=== PATIENT | female | born 1970 | race African-American/Black ===

== ENCOUNTER 2016-04-12 09:55 | Inpatient (IN) | payer OTHER, MEDICAID ==
[~2016-04-12] VITALS: Ht 160 cm; Wt 120.0 kg
[~2016-04-12 09:55] MED LIST: LISI-357 PO; METO25 PO
[2016-04-12 09:57] VITALS: BP 175/117; PULSE 103; RESP 20; TEMP 97.9; O2SAT 96
[2016-04-12 10:08] VITALS: BP 163/105; PULSE 91; RESP 18; O2SAT 99
[2016-04-12] MEDS ORDERED: ONDANSETRON HCL 4 MG/2 ML VIAL IV PUSH ONE (10:15)
[2016-04-12] MEDS: NITROGLYCERIN 0.4 MG SL 25 TABS/BTL SL SCH ×3 (10:15→10:29)
[2016-04-12] MEDS ORDERED: SODIUM CHLORIDE 0.9% FLUSH 5 ML FLUSH IVF PRN (10:15)
[2016-04-12] MEDS ORDERED: ASPIRIN 81 MG CHEW TAB PO ONE (10:15)
[2016-04-12] MEDS ORDERED: METOPROLOL TARTRATE 5 MG/5 ML VIAL IVS SCH (10:15)
[2016-04-12 10:16] VITALS: BP 161/85
--- NOTE | 2016-04-12 10:19 | PD ---
HPI Chief Complaint: Chest Pain Time Seen by Provider: 10:04 Travel History International Travel<30 days: No Contact w/Intl Traveler<30days: No Traveled to known affect area: No History of Present Illness HPI This is a 45-year-old female with history of hypertension, who presents today with complaints of chest pain 2-3 hours. Patient reports it as left sided and achy. She reports it as a 10 out of 10 on the pain scale. She denies any radiation. She does report associated nausea. There is no diaphoresis. When asked if she's had pain like this before, patient states that she did a couple years ago. The patient denies any history of diabetes. She denies any history of hyperlipidemia. She does state that she has a family history of lupus and her mother from lupus related heart disease. There are no other complaints at the time of my examination. PFSH Past Medical History Cancer: No Cardiovascular Problems: Yes (HTN) Endocrine: No Genitourinary: No Headaches: Yes Hypertension: Yes (DURING ) Immune Disorder: No Musculoskeletal: Yes Neurologic: Yes Reproductive: No Respiratory: No Tetanus Vaccination: > 5 Years Influenza Vaccination: Yes ?: Not LMP: 04/08/2016 Ectopic : Yes (X1) Tubal Ligation: Yes Past Surgical History Abdominal Surgery: Yes (APPENDECTOMY) Appendectomy: Yes Section: Yes (3) Gynecologic Surgery: Yes (C SECTION X 4.) Other Surgery: Yes Social History Alcohol Use: No Tobacco Use: No Substance Use: No Allergies-Medications (Allergen,Severity, Reaction): Coded Allergies: Tomato (Verified Allergy, Intermediate, rash, 11/19/13) Reported Meds & Prescriptions Reported Meds & Active Scripts Active Lisinopril 10 Mg Tab 10 Mg PO DAILY Review of Systems Except as stated in HPI: all other systems reviewed are Neg General / Constitutional: No: Fever, Chills HENT: No: Headaches, Lightheadedness Cardiovascular: Positive: Chest Pain or Discomfort, No: Palpitations Respiratory: No: Cough, Shortness of Breath Gastrointestinal: Positive: Nausea, No: Vomiting, Abdominal Pain Genitourinary: No: Frequency, Dysuria Musculoskeletal: No: Weakness, Edema Neurologic: No: Weakness, Dizziness, Syncope, Headache Physical Exam Narrative GENERAL: Well-developed well-nourished female who appears tearful complaining of left sided chest pain. SKIN: Warm and dry. HEAD: Atraumatic. Normocephalic. EYES: No scleral icterus. No injection or drainage. ENT: Mucous membranes pink and moist. NECK: Trachea midline. No JVD. CARDIOVASCULAR: Regular rate and rhythm. No murmur appreciated. RESPIRATORY: No accessory muscle use. Clear to auscultation. Breath sounds equal bilaterally. GASTROINTESTINAL: Abdomen soft, non-tender, nondistended. MUSCULOSKELETAL: No obvious deformities. No clubbing. No cyanosis. No edema. NEUROLOGICAL: Awake and alert. No obvious cranial nerve deficits. Motor grossly within normal limits. Normal speech. PSYCHIATRIC: Appropriate mood and affect. Data Data Last Documented VS Vital Signs Date Time Temp Pulse Resp B/P Pulse Ox O2 Delivery O2 Flow Rate FiO2 04/12/16 11:56 79 18 132/76 98 Room Air 04/12/16 10:29 2 04/12/16 09:57 97.9 Orders Electrocardiogram (04/12/16 10:04) Ckmb (Isoenzyme) Profile (04/12/16 10:04) Complete Blood Count With Diff (04/12/16 10:04) Comprehensive Metabolic Panel (04/12/16 10:04) Magnesium (Mg) (04/12/16 10:04) Prothrombin Time / Inr (Pt) (04/12/16 10:04) Act Partial Throm Time (Ptt) (04/12/16 10:04) Troponin I (04/12/16 10:04) Chest, Single Ap (04/12/16 10:04) Ecg Monitoring (04/12/16 10:04) Bilateral Bp Monitoring (04/12/16 10:04) Iv Access Insert/Monitor (04/12/16 10:04) Oximetry (04/12/16 10:04) Oxygen Administration (04/12/16 10:04) Aspirin Chew (Aspirin Chew) (04/12/16 10:15) Sodium Chloride 0.9% Flush (Ns Flush) (04/12/16 10:15) Nitroglycerin Sl (Nitrostat Sl) (04/12/16 10:15) Ed Urine Pregnancytest Poc (04/12/16 10:04) Ondansetron Inj (Zofran Inj) (04/12/16 10:15) Lisinopril (Prinivil) (04/13/16 09:00) Morphine Inj (Morphine Inj) (04/12/16 12:00) Admit Order (Ed Use Only) (04/12/16 11:54) Labs Laboratory Tests Test 04/12/16 10:10 White Blood Count 14.9 TH/MM3 Red Blood Count 5.22 MIL/MM3 Hemoglobin 12.5 GM/DL Hematocrit 38.7 % Mean Corpuscular Volume 74.2 FL Mean Corpuscular Hemoglobin 23.9 PG Mean Corpuscular Hemoglobin 32.2 % Concent Red Cell Distribution Width 17.5 % Platelet Count 315 TH/MM3 Mean Platelet Volume 8.5 FL Neutrophils (%) (Auto) 72.2 % Lymphocytes (%) (Auto) 21.7 % Monocytes (%) (Auto) 5.5 % Eosinophils (%) (Auto) 0.3 % Basophils (%) (Auto) 0.3 % Neutrophils # (Auto) 10.8 TH/MM3 Lymphocytes # (Auto) 3.2 TH/MM3 Monocytes # (Auto) 0.8 TH/MM3 Eosinophils # (Auto) 0.0 TH/MM3 Basophils # (Auto) 0.0 TH/MM3 CBC Comment AUTO DIFF Differential Comment AUTO DIFF CONFIRMED Prothrombin Time 10.2 SEC Prothromb Time International 0.9 RATIO Ratio Activated Partial 25.1 SEC Thromboplast Time Sodium Level 137 MEQ/L Potassium Level 3.8 MEQ/L Chloride Level 103 MEQ/L Carbon Dioxide Level 25.7 MEQ/L Anion Gap 8 MEQ/L Blood Urea Nitrogen 13 MG/DL Creatinine 0.71 MG/DL Estimat Glomerular Filtration 109 ML/MIN Rate Random Glucose 104 MG/DL Calcium Level 8.2 MG/DL Magnesium Level 2.1 MG/DL Total Bilirubin 0.3 MG/DL Aspartate Amino Transf 14 U/L (AST/SGOT) Alanine Aminotransferase 31 U/L (ALT/SGPT) Alkaline Phosphatase 79 U/L Total Creatine Kinase 93 U/L Troponin I 0.06 NG/ML Total Protein 7.4 GM/DL Albumin 3.7 GM/DL [facility] Medical Decision Making Medical Screen Exam Complete: Yes Emergency Medical Condition: Yes Differential Diagnosis ACS versus muscle skeletal versus pneumonia versus pulmonary embolus Narrative Course This is a 45-year-old female with history of hypertension, who presents today with complaint of 2-3 hours of chest pain. The patient reports the pain as severe pressure like 10 out of 10. The patient had previous episodes of elevated cardiac enzymes in 2013. At that time she had an abnormal stress test. She's not had a cardiac catheterization that I could see and she denies any previously. The patient's troponin is slightly elevated at 0.06. The patient has nonspecific EKG ranges in the inferior leads. She was given nitroglycerin and is pain free after her second dose. She is complaining of nausea and has been given Zofran. I discussed the case with Dr. Pandya, attending and Dr. Steffen Chavez, senior resident who agreed she should be worked up and possibly have a cardiac catheterization. Diagnosis Primary Impression: Chest pain Additional Impressions: Troponin level elevated History of hypertension Scripts Lisinopril 10 Mg Tab10 Mg PO DAILY #30 TAB Ref 0 Prov:Imelda Polo MD R2 04/12/16 Luc Stokes MD Apr 12, 2016 10:19
[2016-04-12 10:27] LABS: AUTOMATED NEUTROPHIL # 10.8 TH/MM3 (1.8-7.7); BASOPHIL % 0.3 % (0.0-2.0); EOSINOPHIL % 0.3 % (0.0-4.0); HEMATOCRIT 38.7 % (35.0-46.0); LYMPH % 21.7 % (9.0-44.0); LYMPHOCYTE # 3.2 TH/MM3 (1.0-4.8); MEAN CELL VOLUME 74.2 FL (80.0-100.0); MEAN CORPUSCULAR HEMOGLOBIN 23.9 PG (27.0-34.0); MEAN CORPUSCULAR HGB CONC 32.2 % (32.0-36.0); MONO % 5.5 % (0.0-8.0); NEUT % 72.2 % (16.0-70.0); PLATELET COUNT 315 TH/MM3 (150-450); RED BLOOD COUNT 5.22 MIL/MM3 (4.00-5.30); RED CELL DISTRIBUTION WIDTH 17.5 % (11.6-17.2); WHITE BLOOD COUNT 14.9 TH/MM3 (4.0-11.0)
[2016-04-12 10:28] LABS: HEMO FLAGS AUTO DIFF
[2016-04-12 10:29] VITALS: BP 151/92; PULSE 101; RESP 20; O2SAT 99
[2016-04-12 10:36] LABS: APTT (PATIENT) 25.1 SEC (24.3-30.1); INTERNATIONAL NORMALIZED RATIO 0.9 RATIO; PROTHROMBIN TIME - PATIENT 10.2 SEC (9.8-11.6)
--- NOTE | 2016-04-12 10:43 | RADRPT ---
EXAM DATE/TIME: 04/12/2016 10:08 [facility] COMPARISON: No previous studies available for comparison. INDICATIONS : Left side chest pain. MEDICAL HISTORY : Hypertension. SURGICAL HISTORY : None. ENCOUNTER: Initial ACUITY: 1 day PAIN SCORE: 7/10 LOCATION: Left chest FINDINGS: A single view of the chest demonstrates the lungs to be symmetrically aerated without evidence of mas s, infiltrate or effusion. The cardiomediastinal contours are unremarkable. Osseous structures are intact. CONCLUSION: Negative for acute process. Mian Barnard MD FACR on April 12, 2016 at 10:39 Board Certified Radiologist. This report was verified electronically.
[2016-04-12 10:45] LABS: ANION GAP 8 MEQ/L (5-15); AST (GOT) 14 U/L (15-37); BICARBONATE 25.7 MEQ/L (21.0-32.0); BLOOD UREA NITROGEN 13 MG/DL (7-18); CHLORIDE 103 MEQ/L (98-107); GLOMERULAR FILTRATION RATE 109 ML/MIN (>89); MAGNESIUM 2.1 MG/DL (1.5-2.5); POTASSIUM 3.8 MEQ/L (3.5-5.1); SODIUM (NA) 137 MEQ/L (136-145)
[2016-04-12 10:50] LABS: ALKALINE PHOSPHATASE 79 U/L (45-117); ALT (GPT) 31 U/L (10-53); TOTAL BILIRUBIN ADULT 0.3 MG/DL (0.2-1.0)
[2016-04-12 10:55] LABS: SCAN/DIFF AUTO DIFF CONFIRMED
[2016-04-12 11:07] LABS: CREATINE KINASE 93 U/L (26-192)
--- NOTE | 2016-04-12 11:35 | HHI.HP ---
HPI Service Family Medicine Primary Care Physician No Primary Care Physician Admission Diagnosis Diagnoses: International Travel<30 Days: No Contact w/Intl Traveler<30days: No Known Affected Area: No History of Present Illness Patient is a 45-year-old female with a PMH significant for HTN. History significant for admission on 11/2013 for chest pain at which time myocardial perfusion and coronary CTA were performed. Myocardial perfusion was significant for moderate sized reversible defect which could indicate ischemia. Coronary CTA was significant for motion artifact in the mid RCA and possible abnormality at the junction of the mid and distal third of the LAD. Presented today for chest pain that started at 0700 spontaneously. Patient was getting ready in the morning when she felt sudden onset of left chest pressure with associated nausea, SOB, pleuritis. She then developed diaphoresis as the chest pain progressed which prompted her ER visit. Chest pain did not resolve until the administration of nitroglycerin. Last episode of chest pain was back in 2013 and she states that she was otherwise at her baseline. Denies any history of chest pain/SOB during her daily activities. ( Imelda Polo MD R2) Review of Systems Constitutional: COMPLAINS OF: Fatigue, DENIES: Fever, Change in appetite Eyes: DENIES: Blurred vision, Eye pain Respiratory: COMPLAINS OF: Shortness of breath, DENIES: Cough, Sputum production Cardiovascular: COMPLAINS OF: Chest pain, Dyspnea on Exertion, DENIES: Lower Extremity Edema, Orthopnea Gastrointestinal: COMPLAINS OF: Abdominal pain, Constipation Genitourinary: DENIES: Dysuria Musculoskeletal: COMPLAINS OF: Joint pain Integumentary: DENIES: Rash Hematologic/lymphatic: DENIES: Lymphadenopathy Neurologic: COMPLAINS OF: Headache, DENIES: Localized weakness (Imelda Polo MD R2) Past Family Social History Past Medical History HTN Gestational HTN Past Surgical History Appendectomy 4 Reported Medications Reported Meds & Active Scripts Active Metoprolol Tartrate 25 Mg Tab 1 Tab PO BID 30 Days Reported Lisinopril 5 Mg Tab 5 Mg PO DAILY (Imelda Polo MD R2) Allergies: Coded Allergies: Tomato (Verified Allergy, Intermediate, rash, 11/19/13) Family History Mother: from Lupus Father: smoker, from lung cancer No history of CAD Social History Lives with 3 children and in house Tobacco: denies Alcohol: denies Illicit: denies (Imelda Polo MD R2) Physical Exam Vital Signs Vital Signs Date Time Temp Pulse Resp B/P Pulse Ox O2 Delivery O2 Flow Rate FiO2 04/12/16 10:29 101 20 151/92 99 Nasal Cannula 2 04/12/16 10:16 161/85 04/12/16 10:08 97 Nasal Cannula 2 04/12/16 10:08 91 18 163/105 99 Room Air 04/12/16 09:57 97.9 103 20 175/117 96 Physical Exam GENERAL: This is a well-nourished, well-developed patient, in no apparent distress. SKIN: No rashes, ecchymoses or lesions. Cool and dry. EYES: Pupils equal round and reactive. Extraocular motions intact. No scleral icterus. No injection or drainage. ENT: Nose without bleeding, purulent drainage. Throat without erythema, tonsillar hypertrophy or exudate. Uvula midline. Airway patent. NECK: No JVD or lymphadenopathy. CARDIOVASCULAR: Regular rate and rhythm murmurs, gallops, or rubs. Grade 2/6 JANELLE RESPIRATORY: Clear to auscultation. Breath sounds equal bilaterally. No wheezes , rales, or rhonchi. GASTROINTESTINAL: Abdomen soft, non-tender, nondistended. No hepato-splenomegaly , or palpable masses. No guarding. MUSCULOSKELETAL: Extremities without clubbing, cyanosis, or edema. No calf tenderness. NEUROLOGICAL: Awake and alert. Motor and sensory grossly within normal limits. Normal speech. Laboratory Laboratory Tests Test 04/12/16 10:10 White Blood Count 14.9 Red Blood Count 5.22 Hemoglobin 12.5 Hematocrit 38.7 Mean Corpuscular Volume 74.2 Mean Corpuscular Hemoglobin 23.9 Mean Corpuscular Hemoglobin 32.2 Concent Red Cell Distribution Width 17.5 Platelet Count 315 Mean Platelet Volume 8.5 Neutrophils (%) (Auto) 72.2 Lymphocytes (%) (Auto) 21.7 Monocytes (%) (Auto) 5.5 Eosinophils (%) (Auto) 0.3 Basophils (%) (Auto) 0.3 Neutrophils # (Auto) 10.8 Lymphocytes # (Auto) 3.2 Monocytes # (Auto) 0.8 Eosinophils # (Auto) 0.0 Basophils # (Auto) 0.0 CBC Comment AUTO DIFF Differential Comment AUTO DIFF CONFIRMED Prothrombin Time 10.2 Prothromb Time International 0.9 Ratio Activated Partial 25.1 Thromboplast Time Sodium Level 137 Potassium Level 3.8 Chloride Level 103 Carbon Dioxide Level 25.7 Anion Gap 8 Blood Urea Nitrogen 13 Creatinine 0.71 Estimat Glomerular Filtration 109 Rate Random Glucose 104 Calcium Level 8.2 Magnesium Level 2.1 Total Bilirubin 0.3 Aspartate Amino Transf 14 (AST/SGOT) Alanine Aminotransferase 31 (ALT/SGPT) Alkaline Phosphatase 79 Total Creatine Kinase 93 Troponin I 0.06 Total Protein 7.4 Albumin 3.7 (Imelda Polo MD R2) Result Diagram: 04/12/16 1010 04/12/16 1010 Imaging Last Impressions Chest X-Ray 04/12/16 1004 Signed Impressions: Service Date/Time: Tuesday, April 12, 2016 10:08 - CONCLUSION: Negative for acute process. Mian Barnard MD FACR (Imelda Polo MD R2) Assessment and Plan Assessment and Plan 45-year-old female with a PMH significant for HTN. Prior hospitalization for chest pain and 11/2013. Admitted for chest pain. Code Status Full Discussed Condition With Dr. Pandya (Imelda Polo MD R2) Attending Attestation Patient seen and examined. Case reviewed and discussed with the resident team. Agree with plan of care as discussed with me and documented in the resident note. was only able to see pt briefly as before I could return to complete a more thorough evaluation she had decided to leave AMA (Nubia Pandya MD) Problem List: (1) Chest pain Status: Acute Plan: Presented with classic symptoms of chest pain with nausea, diaphoresis, SOB. Prior hospitalization for similar symptoms which showed a moderate-sized defect on myocardial perfusion and an abnormal coronary CTA involving the LAD. History of elevated troponin without a history of renal disease. -ACS evaluation -Echocardiogram -Lipid panel -Cardiac telemetry -Chest x-ray unremarkable -Cardiology consulted due to history of abnormal coronary CTA and myocardial perfusion Medications: * Aspirin * Home lisinopril (2) Troponin level elevated Status: Acute Plan: See plan above (3) Hypertension Status: Acute Plan: Elevated BP on admission which has improved with nitroglycerin -Continue home lisinopril (4) Nutrition, metabolism, and development symptoms Status: Acute Plan: Diet: Clear liquids until full evaluation of ACS Electrolytes: Unremarkable Fluids: None DVT prophylaxis: Heparin GI prophylaxis: None indicated After admission patient indicated that she wanted to leave AMA. The importance of admission and disease process was thoroughly explained to patient. However she declined to stay and will be leaving AMA. (Imelda Polo MD R2) Physician Certification 2 Midnight Certification Type: Admission for Inpatient Services Order for Inpatient Services The services are ordered in accordance with Medicare regulations or non- Medicare payer requirements, as applicable. In the case of services not specified as inpatient-only, they are appropriately provided as inpatient services in accordance with the 2-midnight benchmark. Estimated LOS (days): 2 days is the estimated time the patient will need to remain in the hospital, assuming treatment plan goals are met and no additional complications. Post-Hospital Plan: Home (Imelda Polo MD R2) Imelda Polo MD R2 Apr 12, 2016 11:35 Nubia Pandya MD Apr 12, 2016 15:01
[2016-04-12] MEDS ORDERED: LISI10TA3 PO (11:48)
[2016-04-12 11:56] VITALS: BP 132/76; PULSE 79; RESP 18; O2SAT 98
[2016-04-12] MEDS ORDERED: MORPHINE SULFATE 4 MG/ML INJ IV PUSH ONE (12:00)
[2016-04-12] MEDS ORDERED: SODIUM CHLORIDE 0.9% FLUSH 5 ML FLUSH IV PRN (12:15)
[2016-04-12] MEDS ORDERED: NALOXONE HCL 0.4 MG/ML AMP IV PRN (12:30)
[2016-04-12] MEDS ORDERED: ACETAMINOPHEN/HYDROcodone 325 MG/10 MG TAB PO PRN (13:00)
[2016-04-12] MEDS ORDERED: ACETAMINOPHEN/HYDROcodone 325 MG/5 MG TAB PO PRN (13:00)
[2016-04-12] MEDS ORDERED: HEPARIN SODIUM - SQ 10,000 UNITS/ML VIAL SQ SCH (13:00)
[2016-04-12] MEDS ORDERED: ACETAMINOPHEN 325 MG TAB PO PRN (13:00)
[2016-04-12] MEDS ORDERED: MORPHINE SULFATE 4 MG/ML INJ IV PRN (13:00)
[2016-04-12] MEDS ORDERED: ONDANSETRON HCL 4 MG/2 ML VIAL IV PRN (13:00)
--- NOTE | 2016-04-12 13:08 | PD.AMA ---
Against Medical Advice Note Discharge Disposition: Against Medical Advice Pt Condition on Discharge: Stable AMA Statement Patient Raoul Zepeda has decided to leave the hospital against medical advice. This patient has the capacity to refuse care and understands the risks of leaving, including permanent disability and/or , and has had an opportunity to ask questions about her condition. The patient has been informed that she may return to the ED for care at any time dw Imelda Lucero MD R2 Apr 12, 2016 13:08
[2016-04-12 13:15] VITALS: BP 135/74
[2016-04-12] MEDS ORDERED: SODIUM CHLORIDE 0.9% FLUSH 5 ML FLUSH IV SCH (21:00)
[2016-04-13] MEDS ORDERED: ASPIRIN 325 MG TAB PO SCH (09:00)
[2016-04-13] MEDS ORDERED: LISINOPRIL 10 MG TAB PO SCH (09:00)
--- NOTE | 2016-04-19 14:57 | EKG ---
Date Performed: 04/12/2016 Time Performed: 10:06:53 PTAGE: 45 years EKG: Sinus rhythm VOLTAGE CRITERIA FOR LVH NONSPECIFIC T-WAVE ABNORMALITY ABNORMAL ECG Compared to prior tracing no si gnificant change PREVIOUS TRACING : 11/20/2013 05.48 DOCTOR: Mao Galaviz Interpretating Date/Time 04/19/2016 14:55:15
== END 2016-04-12 13:15 | disposition left against medical advice (07) | DRG 313 ==
LOC: NEPC 09:55 → NEDA 11:59
PROVIDERS: ADMIT Family Medicine; ATTEND Family Medicine
DX: R07.9 Chest pain, unspecified (principal); I10 Essential (primary) hypertension; R74.8 Abnormal levels of other serum enzymes; Z83.2 Family history of diseases of the blood and blood-forming organs and certain disorders involving the immune mechanism
CPT/HCPCS: 71010; 80053; 82550; 83735; 84484; 84703; 85025; 85610; 85730; 93005; 93306; 96374; J2405